=== PATIENT | female | born 1965 | race Caucasian/White ===

== ENCOUNTER → 2016-09-01 | Day surgery (SDC) | payer BC ==
[2016-08-18 08:43] VITALS: Ht 177.8 cm; Wt 69.5 kg
[~2016-09-01] VITALS: Ht 177.8 cm; Wt 69.5 kg
[~2016-09-01] MED LIST: ATROPINE SULFATE 0.1 MG/ML 5ML SYR IV PRN; DEXAMETHASONE SOD INJ 4 MG/ML VIAL ONE; EpHEDrine SULFATE INJ 50 MG/ML AMP IV PRN; FENTANYL CITRATE INJ 50 MCG/1 ML 2 ML VIAL IV PRN; FENTANYL CITRATE INJ 50 MCG/1 ML 2 ML VIAL ONE; LACTATED RINGER'S 1000ML 1,000 ML IV SCH; LIDOCAINE HCL 1% 20 ML VIAL ONE; LIDOCAINE HCL 2% 2 ML VIAL (20MG/ML) ONE; MIDAZOLAM HCL 1 MG/ML 2ML VIAL ONE; MULT-506 PO; ONDANSETRON INJ 2 MG/ML 2 ML VIAL IV PRN; ONDANSETRON INJ 2 MG/ML 2 ML VIAL ONE; PROPOFOL IV EMULSION 10 MG/ML 20 ML VIAL IV ONE
--- NOTE | 2016-09-01 09:54 | History & Physical Bridge - [place] ---
H&P Re-Evaluation Bridge Note: I have examined the patient, reviewed the History & Physical and in the interval since the performance of the History & Physical I have noted the following changes of clinical significance: No changes noted
[2016-09-01 10:56] VITALS: TEMP 36.5
--- NOTE | 2016-09-01 11:02 | Discharge Instructions ---
Discharge Instructions Date of Service September 01, 2016. Visit Reason for Visit: Sacroiliitis Discharge Discharge Diagnosis / Problem: low back pain Discharge Goals Goal(s): Decrease discomfort, Improve function Activity Recommendations Activity Limitations: resume your previous activity Anesthesia . Post Anesthesia Instructions: If you have had General Anesthesia or IV Sedation: * Do not drive today. * Resume driving when surgeon permits. * Do not make important decisions or sign legal documents today. * Call surgeon for: 1. Temperature elevations greater than 101 degrees F. 2. Uncontrollable pain. 3. Excessive bleeding. 4. Persistent nausea and vomiting. 5. Medication intolerance (nausea, vomiting or rash). * For nausea and vomiting use only clear liquids such as: tea, soda, bouillon until nausea subsides, then gradually increase diet as tolerated. * If you have any concerns or questions, call your surgeon's office. If physician is unavailable and it is an emergency, call 911 or go to the nearest emergency room. . Diet Recommendations Recommended Home Diet: resume previous diet Procedures Procedures Performed: Left Sacroiliac Cooled Radio Frequency Denervation Pending Studies Studies pending at discharge: no Medical Emergencies . Who to Call and When: Medical Emergencies: If at any time you feel your situation is an emergency, please call 911 immediately. . Non-Emergent Contact Non-Emergency issues call your: Specialist . . "Provider Documentation" section prepared by Ari Messer. .
--- NOTE | 2016-09-01 11:08 | Anesthesia Progress Nt - [facility] ---
Anesthesia Post Op Note Date & Time September 01, 2016 at 11:08 Vital Signs Pain Intensity: 5 Vital Signs Past 12 Hours Date Time Temp Pulse Resp B/P Pulse Ox O2 Delivery O2 Flow Rate FiO2 09/01/16 10:56 36.5 63 16 115/75 94 Room Air 09/01/16 09:08 36.8 57 18 125/86 100 Room Air Notes Mental Status: alert / awake / arousable, participated in evaluation Pt Amnestic to Procedure: Yes Nausea / Vomiting: adequately controlled Pain: adequately controlled Airway Patency, RR, SpO2: stable & adequate BP & HR: stable & adequate Hydration State: stable & adequate Anesthetic Complications: no major complications apparent
[2016-09-01 11:20] VITALS: BP 121/79; PULSE 51; O2SAT 99
--- NOTE | 2016-09-01 11:40 | OPERATIVE REPORT ---
DATE OF OPERATION: 09/01/2016 PREOPERATIVE DIAGNOSIS: Left sacroiliitis. POSTOPERATIVE DIAGNOSIS: Same PROCEDURE: Left sacroiliac joint cooled radiofrequency denervation. INDICATIONS: The patient is a 51-year-old white female that presents today for left sacroiliac joint denervation. She underwent 2 successful blocks to confirm this as the etiology of her pain and she is functionally limiting sacroiliac pain that she quantifies is being at the 5-10 to 8-10/10 range, at all times. PHYSICAL EXAMINATION: Pleasant female seated comfortably. She has point tenderness to palpation of her SI joints, it is worse with extension. She has normal lower extremity strength, intact sensation, negative seated straight leg raises. Positive Shelia maneuver. CONSENT: Verbal and written consent was obtained from the patient. Risks and benefits were reviewed. Risks include but are not limited to abscess, allergic reaction, denervation. She wishes to proceed. PROCEDURE: The patient was taken back to the OR #2 of the [facility]. She was maintained in a prone position. She had conscious sedation throughout the procedure but was able to converse freely and appropriately throughout the procedure. Backside was cleansed with Betadine x3 and a dry sterile dressing was applied. Fluoroscope was used to identify the lateral aspect of the S1 neural foramen and the lateral aspect of the S2 neural foramen, these were anesthetized with 5 mL of lidocaine 1% with a 25 gauge 1.5-inch needle at S1 and laterally at S2 4 mL of lidocaine 1% with a 25 gauge 1.5-inch needle. A denervation needle was then placed and at the S1 level was directed to 4 different points, first was the sacral ala, then the lateral S1 superior aspect of the foramen, then lateral medial S1 foramen, then lateral inferior S1 foramen, all the sites were denervated with a cooling 2 minutes and 30 seconds. After this was completed, the second denervation needle was placed with sites targeting superior lateral aspect of S1, lateral aspect of S2 and inferior lateral aspect of S2 and the superior lateral aspect of S3. These were all denervated with cooling 2 minutes and 30 seconds. The procedure was well tolerated. DISPOSITION: 1. The patient is taken out into the discharge recovery area where she will be discharged home once discharge criteria have been met. 2. Follow up in the [facility] office in 2-4 weeks. I attest to the content of the Intraoperative Record and any orders documented therein. Any exceptio ns are noted below.
== END | disposition home or self-care (01) ==
LOC: X.SURG 08:53
PROVIDERS: ATTEND Physical Medicine & Rehabilitation
DX: M46.1 Sacroiliitis, not elsewhere classified (principal)

== ENCOUNTER → 2016-11-22 | Day surgery (SDC) | payer BC ==
[2016-11-01 12:33] VITALS: Ht 177.8 cm; Wt 69.5 kg
[~2016-11-22] VITALS: Ht 177.8 cm; Wt 69.5 kg
[~2016-11-22] MED LIST changes: -ATROPINE SULFATE 0.1 MG/ML 5ML SYR IV PRN; +BUPIVACAINE 0.25% 2.5MG/ML PF 10 ML VIAL ONE; -DEXAMETHASONE SOD INJ 4 MG/ML VIAL ONE; -EpHEDrine SULFATE INJ 50 MG/ML AMP IV PRN; -FENTANYL CITRATE INJ 50 MCG/1 ML 2 ML VIAL IV PRN; -FENTANYL CITRATE INJ 50 MCG/1 ML 2 ML VIAL ONE; +IOPAMIDOL INJ 61% 15 ML VIAL ONE; -LACTATED RINGER'S 1000ML 1,000 ML IV SCH; -LIDOCAINE HCL 1% 20 ML VIAL ONE; +LIDOCAINE HCL 1% MPF 5 ML VIAL ONE; -LIDOCAINE HCL 2% 2 ML VIAL (20MG/ML) ONE; +METHYLPREDNISOLONE ACETATE 80 MG/ML VIAL ONE; -MIDAZOLAM HCL 1 MG/ML 2ML VIAL ONE; -ONDANSETRON INJ 2 MG/ML 2 ML VIAL IV PRN; -ONDANSETRON INJ 2 MG/ML 2 ML VIAL ONE; -PROPOFOL IV EMULSION 10 MG/ML 20 ML VIAL IV ONE
--- NOTE | 2016-11-22 14:48 | Discharge Instructions ---
Discharge Instructions Date of Service Nov 22, 2016. Visit Reason for Visit: Lumbar Facet Arthropathy Discharge Discharge Diagnosis / Problem: low back pain Discharge Goals Goal(s): Decrease discomfort, Improve function Activity Recommendations Activity Limitations: resume your previous activity Anesthesia . Post Anesthesia Instructions: If you have had General Anesthesia or IV Sedation: * Do not drive today. * Resume driving when surgeon permits. * Do not make important decisions or sign legal documents today. * Call surgeon for: 1. Temperature elevations greater than 101 degrees F. 2. Uncontrollable pain. 3. Excessive bleeding. 4. Persistent nausea and vomiting. 5. Medication intolerance (nausea, vomiting or rash). * For nausea and vomiting use only clear liquids such as: tea, soda, bouillon until nausea subsides, then gradually increase diet as tolerated. * If you have any concerns or questions, call your surgeon's office. If physician is unavailable and it is an emergency, call 911 or go to the nearest emergency room. . Diet Recommendations Recommended Home Diet: resume previous diet Procedures Procedures Performed: Left L4-5 Facet Joint Injection Pending Studies Studies pending at discharge: no Medical Emergencies . Who to Call and When: Medical Emergencies: If at any time you feel your situation is an emergency, please call 911 immediately. . Non-Emergent Contact Non-Emergency issues call your: Specialist . . "Provider Documentation" section prepared by Ari Messer. .
[2016-11-22 14:52] VITALS: BP 114/65; PULSE 54; O2SAT 100
--- NOTE | 2016-11-22 15:47 | OPERATIVE REPORT ---
DATE OF OPERATION: 11/22/2016 PREOPERATIVE DIAGNOSES: Chronic low back pain and lumbar facet arthropathy. POSTOPERATIVE DIAGNOSES: Same. PROCEDURE: Left L4-L5 facet joint injection. INDICATIONS: The patient is a 51-year-old white female who underwent a left sacroiliac cooled denervation, which resulted in a 20% improvement of her overall pain. She is still describing pain a little superior to this. We will inject the L4-L5 facet joint level as this is where she is describing additional pain to provide her with relief. PHYSICAL EXAMINATION: GENERAL: Pleasant female seated comfortably in no apparent distress. MUSCULOSKELETAL: Lumbar paraspinal muscles were palpated. She had at some point tenderness to palpation of her left L4-L5 facet area, which was worse with extension and extension rotation. No pain in the sacroiliac region. Normal motor and sensory exam. CONSENT: Verbal and written consent was obtained from the patient. Risks and benefits were reviewed. Risks include, but are not limited to abscess and allergic reaction. She wishes to proceed. DESCRIPTION OF PROCEDURE: The patient was taken back to the special procedures room of [facility]. She was maintained in a prone position. Backside was cleansed with Betadine x3. Dry sterile dressing was applied. Fluoroscope was used to identify the L4-L5 facet joint, which was noted in an oblique view. Overlying skin was anesthetized with 5 mL of lidocaine 1% with a 25-gauge 1-1/2 inch needle. A 25-gauge, 3-1/2 inch spinal needle was then easily directed into the joint. Isovue-300 contrast less than a 0.25 mL was injected, which showed an intra-articular placement. She then underwent injection after negative aspiration of 40 mg of Depo-Medrol and 0.5 mL and 0.5 mL of bupivacaine 0.25%. Injection was well tolerated. DISPOSITION: 1. The patient was taken out into the discharge recovery area, where she will be discharged home once discharge criteria have been met. 2. Follow up in the [facility] office in 2-4 weeks. I attest to the content of the Intraoperative Record and any orders documented therein. Any exception s are noted below.
== END | disposition home or self-care (01) ==
LOC: X.SURG 13:23
PROVIDERS: ATTEND Physical Medicine & Rehabilitation
DX: M12.9 Arthropathy, unspecified (principal); M46.1 Sacroiliitis, not elsewhere classified